=== PATIENT | female | born 1970 | race Caucasian/White ===

== ENCOUNTER 2017-11-28 21:39 | Emergency (ER) | payer BC ==
[~2017-11-28] VITALS: Ht 167.6 cm; Wt 117.9 kg
[2017-11-28] MEDS ORDERED: CYCL-331 PO (22:07)
[2017-11-28] MEDS ORDERED: HYDR-971 PO (22:07)
[2017-11-28] MEDS ORDERED: PRED20TA PO (22:07)
--- NOTE | 2017-11-28 22:07 | PHYS DOC ---
Past History Past Medical History: No Pertinent History Social History Patient is lesbian, denies possibility of Adult General Chief Complaint Chief Complaint: LOWER BACK PAIN OR INJURY HPI HPI Patient is a 47-year-old female presents to the emergency department for evaluation. She states for the past 24 hours she has been having right lower lumbar/sacral pain, rating down the posterior aspect of her right leg. She has not had any numbness, weakness, or incontinence. She denies any fevers, urinary symptoms, or any injuries. She is able to translate but doing so worsens her pain. She has not had any alleviating factors to her symptoms. She states that she was recently diagnosed with an upper respiratory infection and placed on amoxicillin, but has not had any shortness of breath, abdominal pain, nausea, vomiting. Review of Systems Review of Systems Constitutional: Denies fever or chills [] Eyes: Denies change in visual acuity, redness, or eye pain [] HENT: Denies sore throat [] Respiratory: Denies cough or shortness of breath [] Cardiovascular: The patient denies any shortness of breath, chest pain, palpitations, or orthopnea [] GI: Denies abdominal pain, nausea, vomiting, bloody stools or diarrhea [] : Denies dysuria or hematuria [] Musculoskeletal: Denies joint pain [] Integument: Denies rash or skin lesions [] Neurologic: Denies headache, focal weakness or sensory changes [] Endocrine: Denies polyuria or polydipsia [] All other systems were reviewed and found to be within normal limits, except as documented in this note. Allergies Allergies Allergies Coded Allergies Type Severity Reaction Last Updated Verified No Known Drug Allergies 11/28/17 No Physical Exam Physical Exam PHYSICAL EXAM: CONSTITUTIONAL: Well developed, well nourished HEAD: normocephalic, atraumatic EENT: PERRL, EOMI. Conjunctivae normal color, sclerae non-icteric; moist mucous membranes. NECK: Supple, non-tender; no meningismus. LUNGS: Lungs CTA, breathing even and unlabored. Normal air movement. HEART: Regular rate and rhythm, no murmur CHEST: No deformity; non-tender ABDOMEN: The abdomen is soft, and non-tender, no masses or bruits. EXTREM: Normal ROM; no deformity, no calf tenderness. Normal pulses palpable in all extremities. There is no pedal edema. SKIN: No rash; no diaphoresis NEURO: Alert; normal speech and cognition; CN's grossly intact; strength grossly intact without focal deficit. BACK: No CVA TTP. There is tenderness to palpation in the right parasacral area. There is no midline vertebral tenderness to palpation to the thoracic or lumbar spine. Straight leg raise is positive on the right at about 30. Patellar reflexes are intact bilaterally. There is no foot drop. There is no perineal anesthesia, distal sensation and motor function is normal. EKG EKG [] Radiology/Procedures Radiology/Procedures [] Course & Med Decision Making Course & Med Decision Making I discussed home care plan with the patient, the need for close PCP follow-up for further outpatient evaluation and possible MRI, and return precautions. Dragon Disclaimer Dragon Disclaimer This electronic medical record was generated, in whole or in part, using a voice recognition dictation system. Departure Departure: Impression: Primary Impression: Sciatica Disposition: HOME, SELF-CARE Condition: STABLE Patient Instructions: Sciatica Additional Instructions: Ibuprofen 400-600 mg every 6 hours may help improve your symptoms. Applying a heating pad to the affected area may help improve your symptoms. The prescribed medications may cause drowsiness-use caution while taking. Follow-up with your primary care provider for further evaluation, and possible imaging, such as MRI, if symptoms persist. Make sure to return to the emergency department immediately for development of numbness, weakness, urinary or fecal continence, fevers, or any other new, or concerning symptoms. Scripts Cyclobenzaprine Hcl (CYCLOBENZAPRINE HCL) 10 Mg Tablet 1 TAB PO TID, #30 TAB Prov: ONOFRE DIAZ MD 11/28/17 Hydrocodone Bit/Acetaminophen (NORCO 5-325 TABLET) 1 Each Tablet 1-2 TAB PO Q4-6HRS, #20 TAB Prov: ONOFRE DIAZ MD 11/28/17 Prednisone (PREDNISONE) 20 Mg Tablet 2 TAB PO DAILY, #5 TAB Prov: ONOFRE DIAZ MD 11/28/17 ONOFRE DIAZ MD Nov 28, 2017 22:07
[2017-11-28] MEDS ORDERED: oxyCODONE/APAP 5/325 1 TAB TABLET PO ONE (22:15)
[2017-11-28] MEDS ORDERED: predniSONE 20 MG TABLET PO ONE (22:15)
[2017-11-28 22:19] VITALS: BP 132/65
== END 2017-11-28 22:19 | disposition home or self-care (01) ==
LOC: ER 21:39
DX: M54.41 Lumbago with sciatica, right side (principal)
CPT/HCPCS: 99283; J7512

== ENCOUNTER 2018-12-28 16:57 | Emergency (ER) | payer BC ==
[~2018-12-28 16:57] MED LIST: CYCL-331 PO; HYDR-3165 PO; PRED20TA PO
[2018-12-28] MEDS ORDERED: IV NORMAL SALINE 1,000ML 1,000 ML IV SCH (17:11)
[2018-12-28] MEDS ORDERED: PROCHLORPERAZINE 10 MG/2 ML VIAL. IV ONE (17:15)
[2018-12-28] MEDS ORDERED: KETOROLAC 30 MG/ML VIAL. IV ONE (17:15)
[2018-12-28] MEDS ORDERED: MORPHINE SULFATE 4 MG/ML DISP.SYRIN. IV/SQ PRN (17:15)
--- NOTE | 2018-12-28 17:18 | PHYS DOC ---
Past History Past Medical History: Kidney Stones (GIBRAN PARRA DO) Past Medical History: UTI (KERRI HEDRICK MD) Past Surgical History: No Surgical History (GIBRAN PARRA DO) Smoking: Non-smoker Alcohol Use: None Drug Use: None (GIBRAN PARRA DO) Adult General Chief Complaint Chief Complaint: MULTIPLE COMPLAINTS HPI HPI Patient is a 48-year-old female presents with left-sided abdominal pain/flank pain which started yesterday. Became worse today. Patient also has had 5 epis odes of nausea and vomiting along with some diarrhea today. No blood in the stool or emesis. Pain is similar to previous kidney stone which was passed without any surgical intervention. The last kidney stone was approximately 4 years ago. No blood in the urine. No dysuria. No urgency or frequency. Patient has felt hot but has no thermometer at home to be able to take her temperature. There has been no relief with acetaminophen or ibuprofen, last dose of these medicines was at approximately noon today. No recent travel. Nothing makes the symptoms better or worse. Pain is moderate to severe.[] (GIBRAN PARRA DO) Review of Systems Review of Systems Constitutional: Denies fever or chills [] Eyes: Denies change in visual acuity, redness, or eye pain [] HENT: Denies nasal congestion or sore throat [] Respiratory: Denies cough or shortness of breath [] Cardiovascular: No chest pain or palpitations[] GI: See history of present illness[] : Denies dysuria or hematuria [] Musculoskeletal: Denies back pain or joint pain [] Integument: Denies rash or skin lesions [] Neurologic: Denies focal weakness or sensory changes area did note she does have a headache, diffuse, no visual changes, not worst headache of life. Again no improvement with the acetaminophen or ibuprofen that had been administered. [] Endocrine: Denies polyuria or polydipsia [] All other systems were reviewed and found to be within normal limits, except as documented in this note. (GIBRAN PARRA DO) Allergies Allergies Allergies Coded Allergies Type Severity Reaction Last Updated Verified No Known Drug Allergies 11/28/17 No (GIBRAN PARRA DO) Physical Exam Physical Exam Constitutional: Well developed, well nourished, no acute distress, non-toxic appearance. [] HENT: Normocephalic, atraumatic, bilateral external ears normal, oropharynx moist, no oral exudates, nose normal. [] Eyes: PERRLA, EOMI, conjunctiva normal, no discharge. [] Neck: Normal range of motion, no tenderness, supple, no stridor. [] Cardiovascular:Heart rate is tachycardic with a regular rhythm, no murmur [] Lungs & Thorax: Bilateral breath sounds clear to auscultation [] Abdomen: Bowel sounds normal, soft, no tenderness, no masses, no pulsatile masses. [] Skin: Warm, dry, no erythema, no rash. [] Back: No tenderness, no CVA tenderness. [] Extremities: No tenderness, no cyanosis, no clubbing, ROM intact, no edema. [] Neurologic: Alert and oriented X 3, normal motor function, normal sensory function, no focal deficits noted. [] Psychologic: Affect normal, judgement normal, mood normal. [] (GIBRAN PARRA DO) Current Patient Data Vital Signs Vital Signs Date Time Temp Pulse Resp B/P (MAP) Pulse Ox O2 Delivery O2 Flow Rate FiO2 12/28/18 17:07 99.8 124 20 99 Room Air (GIBRAN PARRA DO) EKG EKG [] (GIBRAN PARRA DO) Radiology/Procedures Radiology/Procedures [] (GIBRAN PARRA DO) Radiology/Procedures [address] [address] IMAGING REPORT Signed PATIENT: MOE MAYORGA ACCOUNT: [id number] : 1970 LOCATION: ER AGE: 48 SEX: F EXAM STATUS: REG ER ORD. PHYSICIAN: GIBRAN PARRA DO REASON: left-sided abdominal and flank pain PROCEDURE: CT ABDOMEN PELVIS WO CONTRAST Exam: CT abdomen and pelvis without INDICATION: Left-sided abdominal pain TECHNIQUE: Sequential axial images through the abdomen and pelvis obtained without IV contrast. Sagittal and coronal reformatted images were reconstructed from the axial data and reviewed. Comparisons: None FINDINGS: Heart size is normal. No pericardial effusion. Visualized lung bases are clear. No pleural effusion. Diffuse decreased attenuation of the liver parenchyma. Otherwise, liver, spleen, pancreas, gallbladder and adrenals are unremarkable. Left-sided perinephric inflammation is noted. Several bilateral nonobstructing renal calculi are noted, largest at the lower pole of the left kidney measuring 1 cm. No ureteral calculi are hydronephrosis is noted. Abdominal aorta has a normal course and caliber. No enlarged abdominal lymph nodes are identified. No suspicious osseous lesions or acute fractures. IMPRESSION: 1. Left-sided perinephric inflammation without hydronephrosis or ureteral calculi are identified. Findings could be seen in setting of infection. Correlate with urinalysis. 2. Bilateral nonobstructing renal calculi. 3. Hepatic steatosis Exposure: One or more of the following in the visualized dose reduction techniques were utilized for this examination: 1. Automated exposure control 2. Adjustment of the MA and/or KV according to patient size 3. Use of iterative of reconstructive technique Electronically signed by: Tyra Gomez MD (12/28/2018 6:12 PM) [facility] [id number] DICTATED AND SIGNED BY: TYRA GOMEZ MD DATE: 12/28/181811 CC: GIBRAN PARRA DO; KERRI HEDRICK MD; PCP,NO ~ (KERRI HEDRICK MD) Course & Med Decision Making Course & Med Decision Making Pertinent Labs and Imaging studies reviewed. (See chart for details) ED course: Patient arrived, was placed in bed, and tolerated exam well. IV access was established, IV fluids and medicines were given. Patient care was endorsed to the nighttime physician at 1800 with laboratory tests and imaging pending.[] (GIBRAN PARRA DO) Course & Med Decision Making Pt. 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. Risk and benefits discussed. Impression 1. Pyelonephrosis 2. History of kidney stones 3. Leukocytosis 12.4 4. Anemia 11.9 hemoglobin 5. Hyponatremia 133 6. Mild elevation in bilirubin and alkaline phosphatase 1.3/123 Patient did start on Flagyl and Keflex. Patient push fluids. Patient return if any concerns. Patient to take Flagyl 500 mg 3 times a day. Patient take Keflex 500 mg 3 times a day. Patient follow-up cultures. Patient return if any concerns. Patient declined admission at this time. (KERRI HEDRICK MD) Dragon Disclaimer Dragon Disclaimer This electronic medical record was generated, in whole or in part, using a voice recognition dictation system. (GIBRAN PARRA DO) Departure Departure: Disposition: HOME/RESIDENCE PRIOR TO ADM Condition: STABLE Referrals: PCP,NO (PCP) Scripts Hydrocodone/Ibuprofen (HYDROCODONE-IBUPROFEN 7.5-200 ) 1 Each Tablet 1 TAB PO PRN Q6HRS PRN for PAIN, #30 TAB 0 Refills Prov: KERRI HEDRICK MD 12/28/18 Metronidazole (FLAGYL) 500 Mg Tablet 500 MG PO TID for infection, #30 TAB Prov: KERRI HEDRICK MD 12/28/18 Ondansetron Hcl (ZOFRAN) 8 Mg Tablet 8 MG PO QIDPRN PRN for NAUSEA/VOMITING, #30 BOTTLE Prov: KERRI HEDRICK MD 12/28/18 Cephalexin (KEFLEX) 500 Mg Capsule 500 MG PO TID for infection, #30 BOTTLE Prov: KERRI HEDRICK MD 12/28/18 GIBRAN PARRA DO Dec 28, 2018 17:18 KERRI HEDRICK MD Dec 28, 2018 18:31
[2018-12-28 17:48] LABS: BASO # 0.1 x10^3/uL (0.0-0.2); BASO % 1 % (0-3); EOS % 0 % (0-3); HEMATOCRIT 35.9 % (36.0-47.0); HEMOGLOBIN 11.9 g/dL (12.0-15.5); LYMPH # 0.7 x10^3/uL (1.0-4.8); LYMPH % 6 % (24-48); MEAN CORPUSCULAR HEMOGLOBIN 28 pg (25-35); MEAN CORPUSCULAR HGB CONC 33 g/dL (31-37); MEAN CORPUSCULAR VOLUME 84 fL (79-100); MONO # 0.9 x10^3/uL (0.0-1.1); MONO % 7 % (0-9); NEUT # 10.6 x10^3uL (1.8-7.7); NEUT % 86 % (31-73); PLATELET COUNT 326 x10^3/uL (140-400); RED BLOOD COUNT 4.27 x10^6/uL (3.50-5.40); RED CELL DISTRIBUTION WIDTH 15.6 % (11.5-14.5); WHITE BLOOD COUNT 12.4 x10^3/uL (4.0-11.0)
[2018-12-28 18:04] LABS: ALBUMIN 3.5 g/dL (3.4-5.0); ALBUMIN/GLOBULIN RATIO 0.9 (1.0-1.7); CREATININE 0.9 mg/dL (0.6-1.0); GFR 67.4; TOTAL BILIRUBIN 1.3 mg/dL (0.2-1.0); TOTAL PROTEIN 7.5 g/dL (6.4-8.2)
--- NOTE | 2018-12-28 18:15 | RAD ---
Exam: CT abdomen and pelvis without INDICATION: Left-sided abdominal pain TECHNIQUE: Sequential axial images through the abdomen and pelvis obtained without IV contrast. Sagittal and coronal reformatted images were reconstructed from the axial data and reviewed. Comparisons: None FINDINGS: Heart size is normal. No pericardial effusion. Visualized lung bases are clear. No pleural effusion. Diffuse decreased attenuation of the liver parenchyma. Otherwise, liver, spleen, pancreas, gallbladder and adrenals are unremarkable. Left-sided perinephric inflammation is noted. Several bilateral nonobstructing renal calculi are noted, largest at the lower pole of the left kidney measuring 1 cm. No ureteral calculi are hydronephrosis is noted. Abdominal aorta has a normal course and caliber. No enlarged abdominal lymph nodes are identified. No suspicious osseous lesions or acute fractures. IMPRESSION: 1. Left-sided perinephric inflammation without hydronephrosis or ureteral calculi are identified. Findings could be seen in setting of infection. Correlate with urinalysis. 2. Bilateral nonobstructing renal calculi. 3. Hepatic steatosis Exposure: One or more of the following in the visualized dose reduction techniques were utilized for this examination: 1. Automated exposure control 2. Adjustment of the MA and/or KV according to patient size 3. Use of iterative of reconstructive technique Electronically signed by: Tyra Marcus MD (12/28/2018 6:12 PM) [facility]
[2018-12-28] MEDS ORDERED: IV RINGERS SOLUTION,LACTATED 1,000 ML IV ONE (18:30)
[2018-12-28] MEDS ORDERED: METR500T PO (18:36)
[2018-12-28] MEDS ORDERED: HYDR-1179 PO (18:36)
[2018-12-28] MEDS ORDERED: CEPH-264 PO (18:36)
[2018-12-28] MEDS ORDERED: ONDA8TAB9 PO (18:36)
[2018-12-28] MEDS ORDERED: IV NORMAL SALINE 50ML 50 ML ONE (18:37)
[2018-12-28] MEDS ORDERED: cefTRIAXone SODIUM 1 GM VIAL ONE (18:37)
[2018-12-28] MEDS ORDERED: MORPHINE SULFATE 10 MG/ML SYRINGE. SQ ONE (18:45)
[2018-12-28 20:35] VITALS: BP 116/67
== END 2018-12-28 20:35 | disposition home or self-care (01) ==
LOC: ER 16:57
DX: N11.1 Chronic obstructive pyelonephritis (principal); D72.829 Elevated white blood cell count, unspecified; E87.1 Hypo-osmolality and hyponatremia; D64.9 Anemia, unspecified; R74.8 Abnormal levels of other serum enzymes; E80.7 Disorder of bilirubin metabolism, unspecified; Z87.442 Personal history of urinary calculi; Z87.440 Personal history of urinary (tract) infections
CPT/HCPCS: 36415; 74176; 80053; 82150; 83690; 85025; 96361; 96365; 96366; 96368; 96372; 96375; 99285; J0696; J0780; J1885; J2270; J3490; J7120; J7030

== ENCOUNTER → 2021-01-18 | Outpatient (CLI) | payer BC ==
[~2021-01-18] MED LIST changes: +CEPH-264 PO; +HYDR-1179 PO; +METR500T PO; +ONDA8TAB9 PO
--- NOTE | 2021-01-18 13:15 | RAD ---
Exam Date: 01/18/2021 12:50 PM XR KNEE _3 [id number] Indication: Reason: ACUTE LEFT KNEE PAIN / Spl. Instructions: / History: . FINDINGS/ IMPRESSION: No acute fracture or dislocation. There is mild medial compartment joint space narrowing. Small ost eophytes are noted. Alignment is maintained. Chondrocalcinosis is seen in the medial and lateral co mpartments. There is a joint effusion. Electronically signed by: Josias Banegas MD (01/18/2021 1:13 PM) [id number]
== END ==
LOC: RAD 12:31
PROVIDERS: ATTEND Nurse Practitioner Family
DX: M25.762 Osteophyte, left knee (principal); M11.262 Other chondrocalcinosis, left knee; M25.462 Effusion, left knee
CPT/HCPCS: 73562